=== PATIENT | female | born 1975 | race Caucasian/White ===

== ENCOUNTER 2018-02-26 23:50 | Emergency (ER) | payer OTHER ==
[~2018-02-26] VITALS: Ht 162.6 cm; Wt 155.6 kg
[~2018-02-26 23:50] MED LIST: METOPROLOL SUCC50 M2 PO; ROBL PO
[2018-02-26 23:56] VITALS: Ht 162.6 cm; Wt 155.6 kg
[2018-02-27 03:13] VITALS: BP 138/78
== END 2018-02-27 03:13 | disposition home or self-care (01) ==
LOC: ED 23:50
DX: M54.5 Low back pain (principal)
CPT/HCPCS: 72072; J1885; J2270; J2405